=== PATIENT | male | born 1970 | race Caucasian/White ===

== ENCOUNTER → 2017-02-27 | Outpatient (CLI) | payer OTHER ==
--- NOTE | 2017-03-01 20:50 | XR ---
EXAMINATION TYPE: XR abdomen 2V DATE OF EXAM: 02/27/2017 CLINICAL HISTORY: General abdominal pain and constipation. TECHNIQUE: Supine and upright views of the abdomen are obtained. COMPARISON: None. FINDINGS: Gas is seen in nondistended stomach. There is paucity of small bowel gas. Visualized gas is noted in nondistended small bowel loops. Gas and fecal material is seen in non-distended colon. No significant air-fluid levels are seen. There is no visceromegaly, pneumoperitoneum, or abnormal k[place] cification appreciated. The lung bases are clear. Underlying dextroconvex scoliosis centered upper l umbar spine is present. IMPRESSION: Overall nonspecific but felt to be nonobstructive bowel gas pattern.
== END | disposition home or self-care (01) ==
LOC: RADXRYALE 11:13
PROVIDERS: ATTEND Physician Assistant Medical
DX: R10.817 Generalized abdominal tenderness (principal)
CPT/HCPCS: 74020

== ENCOUNTER → 2018-05-10 | Outpatient (CLI) | payer BC ==
--- NOTE | 2018-05-10 09:35 | CT ---
EXAMINATION TYPE: CT soft tissue neck wo con DATE OF EXAM: 05/10/2018 COMPARISON: None HISTORY: Lt neck mass CT DLP: 778 mGycm CONTRAST: CT scan of the neck is performed with IV Contrast, patient injected with 100 mL of Isovue 300. Contrast enhanced CT of the neck was performed from the skull base through the lung apices. AIRWAY: The supraglottic, glottic, and subglottic portions of the airway appear patent and free of mass. SALIVARY GLANDS: There is prominence of the left submandibular gland relative to its right-sided coun terpart measuring 4.5 x 4.0 x 6.8 cm versus 3.7 x 4.1 x 6.8 cm. No intraparotid lesion is identified with certainty at this time. The submandibular gland is free of mass or inflammatory process. THYROID GLAND: No nodules or masses seen. LYMPH NODES: No adenopathy seen greater than 1cm. LUNG APICES: No nodule or mass is seen. OTHER: Vascular structures are patent. No significant degenerative change of the cervical spine. N o abscess seen. IMPRESSION: 1. Palpable abnormality left neck corresponds to a mildly prominent parotid gland. Correlate for unde rlying parotitis.
== END | disposition home or self-care (01) ==
LOC: RADCTMAIN 08:50
PROVIDERS: ATTEND Family Medicine
DX: R22.1 Localized swelling, mass and lump, neck (principal)
CPT/HCPCS: 70490; Q9967

== ENCOUNTER 2020-12-21 09:15 | Day surgery (SDC) | payer BC ==
[2020-12-18 11:26] VITALS: BMI 30.2
[~2020-12-21 09:15] MED LIST: LACTATED RINGERS 1,000 ML IV SCH; LIDOCAINE 1% (10MG/ML) FOR IV START INTRADERMA PRN
[2020-12-21 09:31] VITALS: RESP 18; TEMP 97.8
[2020-12-21] MEDS ORDERED: LACTATED RINGERS 1,000 ML IV ONE ×2 (09:31)
[2020-12-21] MEDS ORDERED: LIDOCAINE 1% INJ 10MG/ML (20 ML MDV) ONE (10:21)
[2020-12-21] MEDS ORDERED: PROPOFOL 10 MG/ML 20 ML VIAL IV ONE (10:21)
--- NOTE | 2020-12-21 10:46 | P.PCN ---
Date of Procedure: 12/21/20 Procedure(s) Performed: BRIEF HISTORY: Patient is a 50-year-old pleasant male scheduled for an elective colonoscopy as a part of screening for colorectal neoplasia. PROCEDURE PERFORMED: Colonoscopy with biopsy . PREOPERATIVE DIAGNOSIS: Screening for colon cancer. IV sedation per Anesthesia. PROCEDURE: After informed consent was obtained, the patient, was brought into the endoscopy unit. IV sedation was administered by Anesthesia under continuous monitoring. Digital rectal examination was normal. Initially the Olympus CF-160 flexible video colonoscope was then inserted in the rectum, gradually advanced into the cecum without any difficulty. Careful examination was performed as the scope was gradually being withdrawn. Ileocecal valve and the appendiceal orifice were visualized and appeared normal. Prep was excellent. Mucosa of the cecum, ascending colon, transverse colon, descending colon, appeared normal. Scattered sigmoid diverticulosis seen. There was mild patchy areas of erythema noted in the sigmoid colon and descending from 20-25 cm from the anal verge suggestive of mild diverticular related colitis and biopsies were done from this area. Rest of the sigmoid colon, and rectum appeared normal. Retroflexion was performed in the rectum and no lesions were seen. The patient tolerated the procedure well. IMPRESSION: Scattered sigmoid diverticulosis Mild patchy areas of erythema noted in the sigmoid colon and sent from 20-25 cm from the anal verge suggestive of mild diverticular related colitis RECOMMENDATIONS: Findings of this examination were discussed with the patient as well as his family. He was advised to follow with the biopsy results. She will was advised to be a high-fiber diet and take fiber supplements a regular basis. He can have a repeat screening colonoscopy in 10 years.
[2020-12-21 11:03] VITALS: BP 134/78; PULSE 64
== END 2020-12-21 11:48 | disposition home or self-care (01) ==
LOC: ORWHC2ENDO 09:15
PROVIDERS: ATTEND Internal Medicine Gastroenterology
DX: Z12.11 Encounter for screening for malignant neoplasm of colon (principal); K57.31 Diverticulosis of large intestine without perforation or abscess with bleeding; Z79.3 Long term (current) use of hormonal contraceptives; Z79.899 Other long term (current) drug therapy; Z98.890 Other specified postprocedural states
CPT/HCPCS: 88305; 45380; J2001; J2704